=== PATIENT | female | born 1980 | race Caucasian/White ===

== ENCOUNTER 2016-11-23 11:39 | Emergency (ER) | payer MEDICAID, OTHER ==
[2016-11-23 11:48] VITALS: RESP 18; O2SAT 100; BMI 35.4
--- NOTE | 2016-11-23 13:58 | C.PDOC ---
History Of Present Illness 36 yr old female presents to the ER with complaints of left knee pain. Patient states she was walking down the steps when she missed a step and twisted her knee. Patient states she is able to bear some weight but with pain. Patient denies complete fall, leg pain, back pain, weakness or numbness. 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 Musculoskeletal: Positive for: Other ((+) Left knee pain). Negative for: Back Pain, Leg Pain Neurological: Negative for: Weakness, Numbness Physical Exam - Physical Exam Appears: Non-toxic, No Acute Distress Skin: Warm, Dry, No Rash Head: Atraumatic, Normacephalic Oral Mucosa: Moist Chest: Symmetrical, No Tenderness Cardiovascular: Rhythm Regular, No Murmur Respiratory: Normal Breath Sounds, No Rales, No Rhonchi, No Stridor, No Wheezing Extremity: Other ((+) Left Knee - Tenderness to the lateral aspect. Increase pain with valgus stretch. Negative anterior drawer test.) Pulses: Left Dorsalis Pedis: Normal, Right Dorsalis Pedis: Normal Neurological/Psych: Oriented x3, Normal Speech, Normal Motor ED Course And Treatment O2 Sat by Pulse Oximetry: 100 (RA) Pulse Ox Interpretation: Normal Medical Decision Making Medical Decision Making: PLAN: * X-Ray - Left Knee * POC Disposition - Disposition Referrals: Will Schmidt Sonny, [Non-Staff] - Disposition: HOME/ ROUTINE Disposition Time: 13:20 Condition: GOOD Additional Instructions: Thank you for letting us take care of you today. Your provider was Dr. French. You were treated for knee pain. The emergency medical care you received today was directed at your acute symptoms. If you were prescribed any medication, please fill it and take as directed. It may take several days for your symptoms to resolve. Return to the Emergency Department if your symptoms worsen, do not improve, or if you have any other problems. Please contact your doctor or call one of the physicians/clinics you have been referred to that are listed on the Patient Visit Information form that is included in your discharge packet. Bring any paperwork you were given at discharge with you along with any medications you are taking to your follow up visit. Our treatment cannot replace ongoing medical care by a primary care provider (PCP) outside of the emergency department. Thank you for allowing the [facility] team to be part of your care today. Follow up with your doctor in 3-5 days for re-evaluation and further management. Prescriptions: Ibuprofen [Motrin] 600 mg PO Q6 PRN #20 tab PRN Reason: Pain, Moderate (4-7) Instructions: Crutch Instructions (ED), Knee Pain (ED) Forms: [employer] ([place]ic) - Clinical Impression Clinical Impression: Joint pain, Knee sprain - Scribe Statement The provider has reviewed the documentation as recorded by the Leonibconor Montelongo Provider Attestation: All medical record entries made by the Leonibconor were at my direction and personally dictated by me. I have reviewed the chart and agree that the record accurately reflects my personal performance of the history, physical exam, medical decision making, and the department course for this patient. I have also personally directed, reviewed, and agree with the discharge instructions and disposition.
[2016-11-23 14:20] VITALS: BP 92/60; PULSE 95; TEMP 97.2
--- NOTE | 2016-11-23 16:47 | RAD ---
PROCEDURE: Left Knee Radiographs. HISTORY: Pain. COMPARISON: None. FINDINGS: BONES: Normal. No fracture. JOINTS: Normal. No osteoarthritis. JOINT EFFUSION: None. OTHER FINDINGS: None. IMPRESSION: No acute findings related to/accounting for the clinical presentation. Please note: No preliminary report/ innterpretation of this examination provided by emergency department personnel.
== END 2016-11-23 14:05 | disposition home or self-care (01) ==
LOC: C.ER 11:39
DX: S83.92XA Sprain of unspecified site of left knee, initial encounter (principal); X50.1XXA Overexertion from prolonged static or awkward postures, initial encounter; Y93.01 Activity, walking, marching and hiking

== ENCOUNTER 2018-07-04 14:55 | Emergency (ER) | payer BC, MEDICAID, OTHER ==
--- NOTE | 2018-07-04 15:10 | C.PDOC ---
History Of Present Illness 38 year old female presents to ED with complaint of intermittent non radiating chest pain and SOB for the past week. Patient also complains of intermittent left-sided numbness and numbness to the left her back for the past week. Patient also complains of some cough, chills, and diarrhea. She has a PMHx of GERD, arthritis, herniated disc in the neck, and anxiety. Patient has a FHx of SC. She also states that she has a PSHx of hysterectomy. Her PMD is . She denies recent travel, fever, drug use, difficulty ambulating, falls, trauma, neck pain/stiffness, headache, visual changes, facial droop, or slurred speech. Time Seen by Provider: 07/04/18 15:04 Chief Complaint (Nursing): Chest Pain History Per: Patient History/Exam Limitations: no limitations Onset/Duration Of Symptoms: Days (7) Current Symptoms Are (Timing): Still Present Quality: "Pain" Associated Symptoms: Dyspnea. 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 Negative for: Fever, Weakness Eyes: Negative for: Vision Change Cardiovascular: Positive for: Chest Pain Respiratory: Positive for: Cough, Shortness of Breath Gastrointestinal: Positive for: Diarrhea. Negative for: Nausea, Vomiting, Abdominal Pain Neurological: Positive for: Numbness (left-sided). Negative for: Weakness, Headache Physical Exam - Physical Exam Appears: Non-toxic, No Acute Distress Skin: Normal Color, Warm, Dry Head: Atraumatic, Normacephalic Eye(s): bilateral: Normal Inspection (Conjunctiva clear), PERRL, EOMI Oral Mucosa: Moist Neck: Normal ROM, Supple Chest: Symmetrical, No Tenderness Cardiovascular: Rhythm Regular, No Murmur Respiratory: No Rales, No Rhonchi, No Wheezing, Other (Good air movement, Lungs CTA bilaterally) Gastrointestinal/Abdominal: Soft, No Tenderness, No Distention, No Guarding, No Rebound Extremity: Capillary Refill (<2 seconds) Extremity: Bilateral: Atraumatic, Normal Color And Temperature, Normal ROM, Other (no cyanosis or edema) Pulses: Left Dorsalis Pedis: Normal, Right Dorsalis Pedis: Normal Neurological/Psych: Oriented x3, Normal Speech, Normal Cognition, Normal Cranial Nerves, Normal Motor (5/5 strength), Normal Sensation Gait: Steady Other Neurological Findings: No Facial Palsy Extremity: Right: No Drift, Left: No Drift ED Course And Treatment - Laboratory Results Result Diagrams: 07/04/18 15:57 07/04/18 15:57 ECG: Interpreted By Me, Viewed By Me ECG Rhythm: Sinus Rhythm ECG Interpretation: Normal O2 Sat by Pulse Oximetry: 96 (in RA) Pulse Ox Interpretation: Normal - Other Rad CXR X-Ray: Viewed By Me Interpretation: IMPRESSION: No acute findings identified. - CT Scan/US Head CT Other Rad Studies (CT/US): Read By Radiologist CT/US Interpretation: IMPRESSION: Streak artifact obscures evaluation of the skull base. Hypodense region involving the right temporal lobe in particular suspected secondary to artifact rather than encephalomalacia. Correlate clinically. Ruiz-white matter differentiation appears otherwise unremarkable. Please note that MRI with diffusion imaging is more sensitive in the detection of acute ischemic event. Mucosal thickening of the left ethmoid air cells; correlate clinically for sinusitis. Medical Decision Making Medical Decision Making: Impression: 38 year old female presents to ED with complaint of chest pain and SOB for the past week. Initial Plan: Head CT EKG CMP CBC magnesium troponin CXR Patient informed that all tests came back normal. She was further instructed to follow up with her PMD. Disposition Counseled Patient/Family Regarding: Studies Performed, Diagnosis, Need For Followup - Disposition Referrals: Phoenix Mccollum, FIDELINA, RN ENT [Advanced Practice Nurse] - Disposition: HOME/ ROUTINE Disposition Time: 18:15 Condition: STABLE Additional Instructions: GREGORIA SHEPHERD, thank you for letting us take care of you today. Your provider was Bijal Bruno MD and you were treated for CHEST PAINS. The emergency medical care you received today was directed at your acute symptoms. Return to the Emergency Department if your symptoms worsen, do not improve, or if you have any other problems. Please contact your doctor for a follow up appointment in 1-2 days. Bring any paperwork you were given at discharge with you along with any medications you are taking to your follow up visit. Our treatment cannot replace ongoing medical care by a primary care provider outside of the emergency department. Thank you for allowing the [facility] team to be part of your care today. Instructions: Chest Pain (DC), Paresthesias (DC) Forms: [employer] ([place]), General Discharge Instructions - Clinical Impression Clinical Impression: Chest pain, Paresthesia - Scribe Statement The provider has reviewed the documentation as recorded by the Scribe (Kailey Tao) All medical record entries made by the Scribe were at my direction and personally dictated by me. I have reviewed the chart and agree that the record accurately reflects my personal performance of the history, physical exam, medical decision making, and the department course for this patient. I have also personally directed, reviewed, and agree with the discharge instructions and disposition.
[2018-07-04 15:13] VITALS: TEMP 98.7; BMI 32.5
[2018-07-04 16:00] LABS: BASO # 0.1 K/uL (0.0-0.2); BASO % 0.9 % (0.0-2.0); EOS # 0.1 K/uL (0.0-0.7); EOS % 1.5 % (0.0-4.0); HEMOGLOBIN 13.9 g/dL (11.0-16.0); LYMPH % 32.5 % (20.0-40.0); MEAN CELL VOLUME 92.9 fL (81.0-99.0); MEAN CORPUSCULAR HEMOGLOBIN 31.7 pg (27.0-31.0); MEAN CORPUSCULAR HGB CONC 34.1 g/dL (33.0-37.0); MEAN PLATELET VOLUME 9.3 fL (7.2-11.7); MONO # 0.5 K/uL (0.0-0.8); MONO % 5.7 % (0.0-10.0); NEUT # 5.5 K/uL (1.8-7.0); NEUT % 59.4 % (50.0-75.0); NRBC % 0.1 % (0.0-2.0); RBC 4.39 Mil/uL (3.80-5.20); RED CELL DISTRIBUTION WIDTH 13.8 % (11.5-14.5); WHITE BLOOD COUNT 9.2 K/uL (4.8-10.8)
[2018-07-04 16:15] LABS: ALB/GLOB RATIO 1.5 (1.0-2.1); ALT/SGPT 16 U/L (9-52); AST/SGOT 21 U/L (14-36); BLOOD UREA NITROGEN 16 mg/dL (7-17); GFR NON-AFRICAN AMERICAN > 60
--- NOTE | 2018-07-04 16:35 | RAD ---
HISTORY: chest pain COMPARISON: None available TECHNIQUE: Chest PA and lateral, 2 views FINDINGS: Examination limited by habitus. LUNGS: No focal consolidation. Please note that chest x-ray has limited sensitivity for the detection of pulmonary masses. PLEURA: No significant pleural effusion identified. No definite pneumothorax . CARDIOVASCULAR: The cardiomediastinal silhouette appears within normal limits of size. No atherosclerotic calcification present. OSSEOUS STRUCTURES: No acute osseous abnormality identified. VISUALIZED UPPER ABDOMEN: Unremarkable. OTHER FINDINGS: None. IMPRESSION: No acute findings identified.
--- NOTE | 2018-07-04 16:46 | CT ---
Date of service: 07/04/2018 PROCEDURE: CT HEAD WITHOUT CONTRAST. HISTORY: left side paresthesia COMPARISON: None available. TECHNIQUE: Axial computed tomography images were obtained through the head/brain without intravenous contrast. Radiation dose: Total exam DLP = 1333.66 mGy-cm. This CT exam was performed using one or more of the following dose reduction techniques: Automated exposure control, adjustment of the mA and/or kV according to patient size, and/or use of iterative reconstruction technique. FINDINGS: Streak artifact obscures evaluation of the skull base. HEMORRHAGE: No intracranial hemorrhage. BRAIN: No mass effect or edema. Streak artifact obscures evaluation of the skull base. Hypodense region involving the right temporal lobe in particular suspected secondary to artifact rather than encephalomalacia. Ruiz-white matter differentiation appears otherwise unremarkable. Please note that MRI with diffusion imaging is more sensitive in the detection of acute ischemic event. VENTRICLES: No hydrocephalus. CALVARIUM: Unremarkable. PARANASAL SINUSES: Mucosal thickening of the left ethmoid air cells. MASTOID AIR CELLS: Unremarkable as visualized. No inflammatory changes. OTHER FINDINGS: None. IMPRESSION: Streak artifact obscures evaluation of the skull base. Hypodense region involving the right temporal lobe in particular suspected secondary to artifact rather than encephalomalacia. Correlate clinically. Ruiz-white matter differentiation appears otherwise unremarkable. Please note that MRI with diffusion imaging is more sensitive in the detection of acute ischemic event. Mucosal thickening of the left ethmoid air cells; correlate clinically for sinusitis.
[2018-07-04 18:33] VITALS: BP 112/70; PULSE 74; RESP 20
--- NOTE | 2018-07-05 15:22 | CARD ---
APPROVED REPORT Date of service: 07/04/2018 EKG Measurement Heart [id number] <Conclusion> Normal sinus rhythm Normal ECG
[2018-07-05 18:58] VITALS: O2SAT 96
== END 2018-07-04 18:31 | disposition home or self-care (01) ==
LOC: C.ER 14:55
DX: R07.9 Chest pain, unspecified (principal); R20.2 Paresthesia of skin; F41.9 Anxiety disorder, unspecified; K21.9 Gastro-esophageal reflux disease without esophagitis